=== PATIENT | male | born 1955 | race Asian ===

== ENCOUNTER 2018-11-10 07:18 | Day surgery (SDC) | payer OTHER ==
[~2018-11-10] VITALS: Ht 165.1 cm; Wt 69.6 kg
[2018-11-10 08:35] VITALS: Ht 165.1 cm; Wt 69.6 kg
[2018-11-10] MEDS ORDERED: FENOFIBRIC (08:39)
[2018-11-10] MEDS ORDERED: ASPIRIN (08:40)
[2018-11-10] MEDS ORDERED: LISINOPRIL (08:40)
[2018-11-10] MEDS ORDERED: VITAMINS (08:41)
[2018-11-10] MEDS ORDERED: LOVASTATIN (08:41)
[2018-11-10] MEDS ORDERED: PANTOPRAZOLE (08:41)
[2018-11-10 09:31] VITALS: BP 111/71; PULSE 80; RESP 18
[2018-11-10] MEDS ORDERED: MIDAZOLAM 1 MG/ML 2 ML INJ ONE (10:32)
[2018-11-10 10:53] VITALS: BP 117/65; PULSE 79; RESP 12
[2018-11-10] MEDS ORDERED: MEPERIDINE 50 MG INJ ONE (11:00)
== END 2018-11-10 11:29 | disposition home or self-care (01) ==
LOC: GIL 07:18
PROVIDERS: ATTEND Internal Medicine Gastroenterology
DX: Z12.11 Encounter for screening for malignant neoplasm of colon (principal); K64.8 Other hemorrhoids
CPT/HCPCS: 45378; J2175; J2250; 88305